=== PATIENT | male | born 1995 | race African-American/Black ===

== ENCOUNTER 2016-09-16 14:25 | Emergency (ER) | payer OTHER ==
[2016-09-16 14:58] VITALS: BP 126/62; PULSE 81
--- NOTE | 2016-09-16 15:26 | XR ---
EXAMINATION TYPE: XR chest 2V DATE OF EXAM: 09/16/2016 3:21 PM COMPARISON: NONE INDICATION: Productive cough chest pain TECHNIQUE: Frontal and lateral views of the chest are obtained. FINDINGS: The heart size is normal. The pulmonary vasculature is normal. The lungs are clear. IMPRESSION: 1. No acute pulmonary process.
--- NOTE | 2016-09-16 15:36 | ED ---
URI HPI - General Chief Complaint: Upper Respiratory Infection Stated Complaint: Chest pain Time Seen by Provider: 09/16/16 15:14 Source: patient, RN notes reviewed Mode of arrival: wheelchair Limitations: no limitations - History of Present Illness Initial Comments: Patient is a 21 year old male with cheif complaint of cough for one week, with increased chest pain with cough. Patient denies fever. He denies any sputum production. PAtient deines history of asthma, or family history of heart disease. He states that the pain only occurs when he coughs, and is diffuse over anterior chest. Patient denies sore throat, ear pain, sinus congestion. Patient denies sick contacts or travel history. - Related Data Previous Rx's Medication Instructions Recorded guaiFENesin [guaiFENesin ER] 1,200 mg PO BID #12 tab.er.12h 09/16/16 methylPREDNISolone Dose Pack 4 mg PO DIRECTED #21 package 09/16/16 [Medrol Dose Pack] Allergies Allergy/AdvReac Type Severity Reaction Status Date / Time pear Allergy Swelling Verified 09/16/16 14:58 Review of Systems ROS Statement: Those systems with pertinent positive or pertinent negative responses have been documented in the HPI. ROS Other: All systems not noted in ROS Statement are negative. Past Medical History Past Medical History: No Reported History History of Any Multi-Drug Resistant Organisms: None Reported Additional Past Surgical History / Comment(s): abd surg Past Psychological History: ADD/ADHD, Bipolar, PTSD Smoking Status: Current every day smoker Past Alcohol Use History: None Reported Past Drug Use History: Marijuana General Exam Limitations: no limitations General appearance: alert, in no apparent distress Head exam: Present: atraumatic, normocephalic, normal inspection Eye exam: Present: normal appearance, PERRL, EOMI. Absent: scleral icterus, conjunctival injection, periorbital swelling ENT exam: Present: normal exam, mucous membranes moist Neck exam: Present: normal inspection. Absent: tenderness, meningismus, lymphadenopathy Respiratory exam: Present: normal lung sounds bilaterally. Absent: respiratory distress, wheezes, rales, rhonchi, stridor Cardiovascular Exam: Present: regular rate, normal rhythm, normal heart sounds. Absent: systolic murmur, diastolic murmur, rubs, gallop, clicks GI/Abdominal exam: Present: soft, normal bowel sounds. Absent: distended, tenderness, guarding, rebound, rigid Extremities exam: Present: normal inspection, full ROM, normal capillary refill. Absent: tenderness, pedal edema, joint swelling, calf tenderness Back exam: Present: normal inspection Neurological exam: Present: alert, oriented X3, CN II-XII intact Psychiatric exam: Present: normal affect, normal mood Skin exam: Present: warm, dry, intact, normal color. Absent: rash Course Vital Signs 09/16/16 09/16/16 09/16/16 14:55 15:37 15:41 Temperature 98.7 F 97.9 F Pulse Rate 81 Respiratory 16 20 Rate Blood Pressure 126/62 O2 Sat by Pulse 100 Oximetry Medical Decision Making - Medical Decision Making Patient has had one week of cough and chest pain with cough. It has been non productive and no fever. Patient has not taken OTC medication. Patient has no wheezing. Patient discharged with medrol dose pack, and mucinex DM. Patient diagnosed with bronchitis. Return parameteres discussed. Patient understands treatmentplan and will comply. - Radiology Data Radiology results: report reviewed CXR reviewed to be negative. Disposition Clinical Impression: Cough Disposition: HOME SELF-CARE Condition: Good Instructions: Acute Bronchitis (ED) Additional Instructions: Patient instructed to rest, increase fluids and remained hydrated. Patient instructed to discontinue smoking. Take steroid pack for the next 5 days as directed. Also take decongestant medication as prescribed. Return to the [facility] if any alarming signs or symptoms occur. Prescriptions: guaiFENesin [guaiFENesin ER] 1,200 mg PO BID #12 tab.er.12h methylPREDNISolone Dose Pack [Medrol Dose Pack] 4 mg PO DIRECTED #21 package Referrals: None,Stated [Primary Care Provider] - 1-2 days Time of Disposition: 15:32
[2016-09-16 15:38] VITALS: RESP 20
[2016-09-16 15:42] VITALS: TEMP 97.9
== END 2016-09-16 15:42 | disposition home or self-care (01) ==
LOC: EC 14:25
DX: J20.9 Acute bronchitis, unspecified (principal); F17.200 Nicotine dependence, unspecified, uncomplicated; Z91.018 Allergy to other foods
CPT/HCPCS: 71020; 99283